=== PATIENT | male | born 1985 | race Caucasian/White ===

== ENCOUNTER → 2021-04-05 | Outpatient (CLI) | payer OTHER | LOC: NM 09:54 | DX: I11.0 Hypertensive heart disease with heart failure (principal); I50.9 Heart failure, unspecified; E78.49 Other hyperlipidemia; R07.9 Chest pain, unspecified; R06.02 Shortness of breath; I48.0 Paroxysmal atrial fibrillation; I25.5 Ischemic cardiomyopathy | CPT/HCPCS: 78452; 93017; A9502 ==